=== PATIENT | male | born 1990 | race Caucasian/White ===

== ENCOUNTER 2019-03-09 11:22 | Emergency (ER) | payer BC ==
[2019-03-09] MEDS ORDERED: Ketorolac 60 MG/2 ML SDV IM ONE (11:44)
[2019-03-09] MEDS ORDERED: cefTRIAXone 1 GM Vial IM ONE (11:44)
[2019-03-09] MEDS ORDERED: Take Home: Acetaminophen/HYDROcodone 325-5 MG, 5 Tab Pack PO ONE (11:45)
[2019-03-09] MEDS ORDERED: Lidocaine 1% 2 ML ONE (11:58)
--- NOTE | 2019-03-09 12:01 | EDM.PDOC ---
ED HPI GENERAL MEDICAL PROBLEM - General Chief Complaint: Skin Complaint Stated Complaint: LUMP REAR LOWER EXTREMITIES Time Seen by Provider: 03/09/19 11:35 Source of Information: Reports: Patient History Limitations: Reports: No Limitations - History of Present Illness INITIAL COMMENTS - FREE TEXT/NARRATIVE: Patient presents to ER with complaints of a boil to his left buttock. Started noting discomfort in that area about 2 weeks ago and has been worsening since that time. Is now having a difficult time with discomfort, ambulating and sitting. Has gotten larger and more tender. Denies any fevers. Unsure if has had any drainage from it as of yet. "feels alot of pressure" No problems with defecating except for discomfort. Onset: Gradual Duration: Day(s): Quality: Reports: Throbbing Severity: Severe Improves with: Reports: Medication Worsens with: Reports: Other (sitting) Associated Symptoms: Denies: Fever/Chills, Nausea/Vomiting Left Buttock Pain Score (Numeric/FACES): 9 - Related Data Allergies Allergy/AdvReac Type Severity Reaction Status Date / Time No Known Allergies Allergy Verified 03/09/19 12:12 Home Meds: Home Meds . [No Known Home Meds] 03/09/19 [History] Past Medical History - Past Health History Medical/Surgical History: Denies Medical/Surgical History Social & Family History - Tobacco Use Smoking Status *Q: Unknown Ever Smoked ED ROS GENERAL - Review of Systems Review Of Systems: See Below Constitutional: Denies: Fever, Chills, Malaise, Weakness, Fatigue HEENT: Reports: No Symptoms Respiratory: Reports: No Symptoms Cardiovascular: Reports: No Symptoms Endocrine: Reports: No Symptoms GI/Abdominal: Denies: Abdominal Pain, Decreased Appetite, Nausea, Vomiting : Reports: No Symptoms Musculoskeletal: Reports: No Symptoms Skin: Reports: Lumps Neurological: Reports: No Symptoms ED EXAM, SKIN/RASH Exam: See Below Exam Limited By: No Limitations General Appearance: Alert, WD/WN, Mild Distress GI/Abdominal: Normal Bowel Sounds, Soft, Non-Tender Skin: Other (oranges-sized erythematous area to left buttock. Tender. Quarter- sized area of firmness noted at the center. See procedure.) Location, Skin: Groin ED SKIN PROCEDURES - I&D Site: left buttock/groin Skin Prep: Chlorhexidine (Hibiciens) Local Anesthesia: Lidocaine: 1% with EPI Local Anesthetic Volume: 3cc Area Incised With: 11 Blade Drainage: Purulent, Bloody, Moderate Amount (initial purulent drainage followed with bloody drainage. When probed, clots expressed from the area.) Probed to Break Up Loculations: Yes Sterile Dressinx4(s) Complications: No (culture obtained) Course - Vital Signs Last Recorded V/S: Last Vital Signs Temp 98 F 03/09/19 11:25 Pulse 115 H 03/09/19 11:25 Resp 18 03/09/19 11:25 BP 165/80 H 03/09/19 12:21 Pulse Ox 96 03/09/19 11:25 - Orders/Labs/Meds Orders: Active Orders 24 hr Category Date Time Status CULTURE WOUND [RM] Stat Lab 03/09/19 11:45 Received Meds: Medications Discontinued Medications Generic Name Dose Route Start Last Admin Trade Name Freq PRN Reason Stop Dose Admin Hydrocodone Bitart/Acetaminophen 1 packet 03/09/19 11:45 03/09/19 12:03 Take Home: Acetam/Hydrocodon 325-5 Mg, 5 Pack PO 03/09/19 11:46 1 packet ONETIME ONE Administration Ceftriaxone Sodium 1 gm 03/09/19 11:44 03/09/19 12:02 Rocephin IM 03/09/19 11:45 1 gm ONETIME ONE Administration Lidocaine HCl Confirm 03/09/19 11:58 03/09/19 12:02 Xylocaine-Mpf 1% Administered 03/09/19 11:59 2 mls/hr Dose Administration 2 mls @ as directed .ROUTE .STK-MED ONE Ketorolac Tromethamine 60 mg 03/09/19 11:44 03/09/19 12:03 Toradol IM 03/09/19 11:45 60 mg ONETIME ONE Administration Lidocaine HCl 5 ml 03/09/19 11:34 03/09/19 11:40 Xylocaine-Mpf 1% INJECT 03/09/19 11:35 5 ml ONETIME ONE Administration Departure - Departure Time of Disposition: 12:15 Disposition: Home, Self-Care 01 Condition: Fair Clinical Impression: Infected sebaceous cyst - Discharge Information *PRESCRIPTION DRUG MONITORING PROGRAM REVIEWED*: No *COPY OF PRESCRIPTION DRUG MONITORING REPORT IN PATIENT TUHY: No Instructions: Epidermal Cyst Removal, Epidermal Cyst Removal, Care After Forms: ED Department Discharge Additional Instructions: 1. Warm packs or warm pack, continue to express drainage from the area 2. Vanderbilt- 1 tab every 4-6 hours for pain, alternate with ibuprofen 3. Bactrim DS~ 1 tab twice a day for 10 days 4. Follow up with primary care provider if persisting concerns. Sepsis Event Note - Focused Exam Vital Signs: Vital Signs Temp Pulse Resp BP Pulse Ox 03/09/19 12:21 165/80 H 03/09/19 11:25 98 F 115 H 18 158/105 H 96 Date Exam was Performed: 03/09/19 Time Exam was Performed: 12:28 - My Orders Last 24 Hours: My Active Orders 03/09/19 11:45 CULTURE WOUND [RM] Stat - Assessment/Plan Last 24 Hours: My Active Orders 03/09/19 11:45 CULTURE WOUND [RM] Stat
== END 2019-03-09 12:29 | disposition home or self-care (01) ==
LOC: VM.ED 11:22
DX: L72.3 Sebaceous cyst (principal); L08.9 Local infection of the skin and subcutaneous tissue, unspecified
CPT/HCPCS: 10060; 87070; 87077; 96372; 99283-25; A9270-GY; J0696; J1885; J2001